=== PATIENT | female | born 1955 | race Caucasian/White ===

== ENCOUNTER 2020-10-02 20:07 | Emergency (ER) | payer OTHER ==
[~2020-10-02] VITALS: Ht 167.6 cm; Wt 60.3 kg
[2020-10-02 20:10] VITALS: BP 123/81
--- NOTE | 2020-10-02 20:10 | NUR ---
TO LOBBY A/W BED AMBULATORY
--- NOTE | 2020-10-02 20:25 | NUR ---
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
[2020-10-02] MEDS ORDERED: HYDROcodone/APAP 5/325 MG 1 TAB TAB PO ONE (21:00)
[2020-10-02] MEDS ORDERED: BUPIVACAINE-MPF 0.5% 30 ML VIAL INJ ONE ×2 (21:00→22:10)
[2020-10-02] MEDS ORDERED: LIDOCAINE MPF 1% 10 MG/ML VIAL INJ ONE (21:00)
--- NOTE | 2020-10-02 21:00 | NUR ---
SEEN AND EXAMINED BY BRITNI WITH ORDERS AND CARRIED OUT.
--- NOTE | 2020-10-02 21:46 | NUR ---
PT TAKEN TO BED 12, STEADY GAIT
--- NOTE | 2020-10-02 21:46 | NUR ---
65 Y/O FEMALE C/O R WRIST PAIN S/P FALL AFTER WALKING A FRIEND'S DOG XTODAY. PT STATES 08/14 PAIN. SWELLING NOTED. DENIES N/V OR LOC. MEDHX: hypertension, CVA, and COPD NKA
--- NOTE | 2020-10-02 23:00 | NUR ---
ERMD AT BEDSIDE PERFORMING PROCEDURE
--- NOTE | 2020-10-02 23:40 | NUR ---
XRAY AT BEDSIDE
[2020-10-03 00:12] VITALS: BP 123/81
== END 2020-10-03 00:12 | disposition home or self-care (01) ==
LOC: MED 20:07
DX: S52.501A Unspecified fracture of the lower end of right radius, initial encounter for closed fracture (principal); J44.9 Chronic obstructive pulmonary disease, unspecified; I10 Essential (primary) hypertension; Z86.73 Personal history of transient ischemic attack (TIA), and cerebral infarction without residual deficits; W19.XXXA Unspecified fall, initial encounter; Y93.89 Activity, other specified; Y92.89 Other specified places as the place of occurrence of the external cause; Y99.8 Other external cause status
CPT/HCPCS: 25605; 73090; 73110; 99284; J2001; J3490